=== PATIENT | female | born 1995 | race Caucasian/White ===

== ENCOUNTER 2019-11-23 08:13 | Emergency (ER) | payer MEDICAID ==
[~2019-11-23] VITALS: Ht 157.5 cm; Wt 83.0 kg
[2019-11-23] MEDS ORDERED: ACETAMINOPHEN 325MG TABLET PO ONE (10:45)
[2019-11-23] MEDS ORDERED: IBUPROFEN 600MG TABLET PO ONE (10:45)
[2019-11-23 11:11] VITALS: BP 120/60
== END 2019-11-23 11:20 | disposition home or self-care (01) ==
LOC: ER 08:13
DX: B34.9 Viral infection, unspecified (principal)
CPT/HCPCS: 99283